=== PATIENT | female | born 1960 | race Caucasian/White ===

== ENCOUNTER 2022-09-18 09:00 | Outpatient (RCR) | payer BC, SELFPAY | END 2022-09-18 09:53 | disposition home or self-care (01) | LOC: HO.PT 09:00 | PROVIDERS: PCP Family Medicine; Visit Provider Physician Assistant Medical | DX: M99.05 Segmental and somatic dysfunction of pelvic region (principal); R15.9 Full incontinence of feces | CPT/HCPCS: 97110; 97112; 97140; 97162; 97535 ==